=== PATIENT | female | born 1935 | race Caucasian/White ===

== ENCOUNTER 2018-06-05 10:32 | Outpatient (CLI) | payer MEDICARE, BC ==
--- NOTE | 2018-06-05 12:31 | MRI ---
MRI LUMBAR SPINE WITHOUT CONTRAST: HISTORY: Lumbar radiculopathy. Low back pain, radiating down her posterior right leg. Associated tingling in the 1st digit of the right foot, x 6 weeks. COMPARISON: 09/11/2016. TECHNIQUE: MRI lumbar spine is performed without intravenous Gadolinium administration. Multisequential, multip lanar imaging is performed. FINDINGS: There is a hypointensity of the visualized marrow signal of the distal thoracic vertebrae, lumbar reji tebrae, and S1 vertebral body. Heterogeneous areas of fatty marrow are noted. Findings may represen t senescent change. Anemia could not be completely excluded. There is no significant STIR hyperinte nsity to suggest ligamentous injury or an acute lumbar spine fracture. There is a severe compression fracture involving the L1 vertebral body, likely chronic given the lack of STIR hyperintensity. There are multiple T2 hyperintensities in the kidneys compatible with cysts. Symmetric signal intens ity of the psoas muscles. Conus medullaris terminates at the mid T12 level. T12-L1: Desiccation with moderate loss of disk space height. No high-grade central canal stenosis. Mild bilateral neural foraminal narrowing. L1-L2: No significant loss of disk space height. Generalized disk bulge results in minimal central c anal stenosis. Moderate to severe right and moderate left neural foraminal narrowing. There is 3.5 mm of retrolisthesis of L1 upon L2. L2-L3: Adequate disk hydration. Minimal central and left subarticular disk bulge. No significant c entral canal stenosis. Neural foramina are patent. L3-L4: Adequate disk hydration. No significant loss of disk space height. There is a small central and left subarticular disk bulge. Minimal narrowing of the left subarticular zone. There is no sig nificant central canal stenosis. There is metallic susceptibility artifact secondary to unilateral t ranspedicular screw on the right side at L4. L4-L5: Adequate disk hydration. There is a central/left subarticular disk bulge without significant central canal stenosis. Left hemilaminotomy defect. Mild central canal stenosis. Limited evaluati on of the right neural foramen due to metallic susceptibility artifact from a right-sided transpedicu lar screw at L4 and L5. Mild right foraminal narrowing. The left neural foramen is mildly narrowed. There is 5 mm anterolisthesis of L4 upon L5. Previously noted narrowing of the right subarticular zone is no longer evident. L5-S1: Left hemilaminectomy defect. There is a generalized disk bulge with disk material abutting b oth traversing S1 nerve roots. There is some mass effect without obscuration of the traversing right S1 nerve root. The left S1 nerve root is unremarkable. A left laminectomy defect is identified. T here is bilateral left side hypertrophy. Moderate bilateral foraminal narrowing. IMPRESSION: 1. Postsurgical changes of the lumbar spine as above. There are varying degrees of central canal st enosis and foraminal narrowing as detailed above. 2. Remote compression fracture at L1. 3. T1 marrow signal intensity hypointensity of the lumbar vertebrae, unchanged from the previous exa mination. Correlate for anemia. POS: [facility]
== END 2018-06-05 10:33 | disposition home or self-care (01) ==
LOC: BICMRI 10:32
PROVIDERS: ATTEND Specialist
DX: M54.16 Radiculopathy, lumbar region (principal); M48.061 Spinal stenosis, lumbar region without neurogenic claudication; Z98.890 Other specified postprocedural states
CPT/HCPCS: 72148

== ENCOUNTER 2018-07-05 13:33 | Outpatient (CLI) | payer MEDICARE, BC ==
[2018-07-05 15:36] LABS: Anion Gap 13 mmol/L (10-20); BUN (Urea Nitrogen) 23 mg/dL (9.8-20.1); Calc. Creatinine Clearance 0 mL/min (70-130); Calcium 9.6 mg/dL (7.8-10.44); Carbon Dioxide 29 mmol/L (23-31); Chloride 102 mmol/L (98-107); Estimated GFR-MDRD 73; Glucose 113 mg/dL (83-110); Potassium 3.4 mmol/L (3.5-5.1); Sodium 141 mmol/L (136-145)
== END 2018-07-05 13:34 | disposition home or self-care (01) ==
LOC: LABBT 13:33
PROVIDERS: ATTEND Neurological Surgery
DX: Z01.818 Encounter for other preprocedural examination (principal); M54.16 Radiculopathy, lumbar region
CPT/HCPCS: 80048; 93005; 93010

== ENCOUNTER 2018-07-08 08:23 | Day surgery (SDC) | payer MEDICARE, BC ==
[2018-07-05 13:40] VITALS: BMI 29.2
[2018-07-08] MEDS ORDERED: Bupivacaine HCl 0.5%/Epinephrine 1:200,000/PF 30 ml Vial ONE (10:42)
[2018-07-08] MEDS ORDERED: Fentanyl 100 MCG/2 ML VIAL ONE ×2 (11:14→12:39)
--- NOTE | 2018-07-08 12:35 | OP ---
DATE OF PROCEDURE: 07/08/2018 CONTAMINATED LAND CONSULTANT: Zac Solsi PA-C. INDICATION: Pain. DIAGNOSIS: Right S1 radiculopathy. PROCEDURES PERFORMED: Right L5-S1 decompression. ANESTHESIA: General. DESCRIPTION OF PROCEDURE: The patient was brought into the operating room and placed under general anesthesia. She was flipped from the supine to prone position on the operating room table. A linear incision was planned to the site of an old incision. This area was prepped and draped. After appropriate pause, the incision was created. The soft tissues were swept right of midline. A self-retaining retractor was placed in the wound for optimal exposure. After confirming appropriate level with C-arm fluoroscopy, high-speed cutting drill bit as well as 2 and 3 mm Kerrisons were used to perform a laminectomy, which extended along the inferior aspect of L5 and the superior aspect of S1. The S1 nerve root was identified and subsequently decompressed throughout its course in the lateral recess in the proximal aspect of the foramina. The wound was then irrigated. Hemostasis was maintained throughout. The wound was then closed in anatomic layers and a pressure dressing was applied. There were no known procedural complications. Job ID: [id number]
[2018-07-08] MEDS ORDERED: Lidocaine 1% PF 5 ML VIAL ONE (15:12)
[2018-07-08] MEDS ORDERED: Glycopyrrolate 0.2 MG/ML 5 ML SYRINGE ONE (15:12)
[2018-07-08] MEDS ORDERED: Rocuronium Bromide 10 MG/ML (10ML VIAL) ONE (15:12)
[2018-07-08] MEDS ORDERED: PROPOFOL 200 MG/20 ML VIAL ONE (15:12)
[2018-07-08] MEDS ORDERED: PHENYLEPHRINE-NS 100 MCG/ML 10 ML SYRINGE ONE (15:12)
[2018-07-08] MEDS ORDERED: Acetaminophen/Codeine 30-300mg Tablet ONE (15:28)
== END 2018-07-08 16:25 | disposition home or self-care (01) ==
LOC: SDC 08:23
PROVIDERS: ATTEND Neurological Surgery
PROC: 01NB0ZZ Release Lumbar Nerve, Open Approach (ICD-10-PCS; principal; 2018-07-08)
DX: M54.18 Radiculopathy, sacral and sacrococcygeal region (principal); M54.16 Radiculopathy, lumbar region; M81.0 Age-related osteoporosis without current pathological fracture; K58.9 Irritable bowel syndrome, unspecified; G20 Parkinson's disease; Z79.82 Long term (current) use of aspirin; Z79.899 Other long term (current) drug therapy; Z88.2 Allergy status to sulfonamides; Z88.5 Allergy status to narcotic agent; Z98.1 Arthrodesis status; Z98.890 Other specified postprocedural states
CPT/HCPCS: 76000; J0670; J2001; J2704; J3010

== ENCOUNTER 2018-09-02 19:01 | Inpatient (IN) | payer MEDICARE, BC ==
[2018-09-02] MEDS ORDERED: Fentanyl 100 MCG/2 ML VIAL ONE (19:23)
[2018-09-02] MEDS ORDERED: Ondansetron PF 4 MG/2 ML Vial ONE (19:23)
--- NOTE | 2018-09-02 19:50 | RAD ---
EXAM: Chest one view: HISTORY: Left-sided chest pain following injury from a fall COMPARISON: 01/22/2008 FINDINGS: Heart size: Within normal limits. The lungs: Clear of acute process. No evidence for pneumonia, pleural effusion, acute edema, or pneumothorax, or other significant acute process. IMPRESSION: No significant acute intrathoracic disease. Atherosclerosis of the aorta. Stable from prior study.
--- NOTE | 2018-09-02 19:51 | RAD ---
Exam: AP pelvis: HISTORY: Left sided pain following a fall and injury FINDINGS: Minimally displaced intertrochanteric fracture left femur. Postoperative fixation screw of the right hip. Postoperative changes at L4-L5 on the right side. Diffuse bony demineralization. No acute pelvic fracture proper. IMPRESSION: Displaced intertrochanteric fracture left femur
--- NOTE | 2018-09-02 19:52 | RAD ---
Exam: Left hip 2 views: HISTORY: Left hip pain following injury from a fall Minimally displaced intertrochanteric fracture left femur with some minimal angulation deformity. IMPRESSION: Minimally displaced and angulated intertrochanteric fracture left femur.
[2018-09-02 20:11] LABS: #Basophils 0.1 thou/uL (0.0-0.2); #Eosinphils 0.1 thou/uL (0.0-0.7); #Lymphocytes 2.1 thou/uL (1.20-3.40); #Monocytes 0.9 thou/uL (0.11-0.59); #Neutrophils 5.8 thou/uL (1.40-6.50); %Basophils 0.6 % (0.0-1.0); %Eosinophils 1.3 % (0.0-10.0); %Neutrophils 65.1 % (42.0-75.0); Hemoglobin 13.1 g/dL (12.0-16.0); Mean Corpuscular HGB CONC 32.4 g/dL (32.0-36.0); Mean Corpuscular Hemoglobin 30.3 pg (27.0-31.0); Mean Corpuscular Volume 93.5 fL (78.0-98.0); Mean Platelet Volume 6.8 fL (7.4-10.4); Platelet Count 245 thou/uL (130-400); RBC Distribution Width 12.6 % (11.5-14.5); Red Blood Cell (RBC) Count 4.33 mill/uL (4.20-5.40)
[2018-09-02 20:19] LABS: INR-International Normal Ratio 0.9; Prothrombin Time 12.6 SEC (12.0-14.7)
[2018-09-02 20:34] LABS: ALT (SGPT) Less than 7 U/L (8-55); AST (SGOT) 19 U/L (5-34); Alkaline Phosphatase 80 U/L (40-150); Anion Gap 14 mmol/L (10-20); BUN (Urea Nitrogen) 15 mg/dL (9.8-20.1); Bilirubin, Total 0.3 mg/dL (0.2-1.2); Calc. Creatinine Clearance 0 mL/min (70-130); Calcium 9.7 mg/dL (7.8-10.44); Carbon Dioxide 28 mmol/L (23-31); Chloride 102 mmol/L (98-107); Estimated GFR-MDRD 82; Globulin 2.7 g/dL (2.4-3.5); Glucose 99 mg/dL (83-110); Potassium 3.6 mmol/L (3.5-5.1); Protein, Total 6.7 g/dL (6.0-8.3); Sodium 140 mmol/L (136-145)
--- NOTE | 2018-09-02 21:44 | HP ---
REQUESTING PHYSICIAN: Dr. Urbina. CONSULTATIONS: Orthopedics, Dr. Siddiqui. HISTORY OF PRESENT ILLNESS: The patient is an 82-year-old woman, who was reportedly walking at home when she tripped possibly on a rug, but fell landing on her left hip. The patient denied any loss of consciousness. She denied any syncopal type symptoms before or after the fall. She had family called 911. The patient was brought to the emergency department by ground EMS, where she underwent evaluation and examination, and was noted to have a left hip fracture, at which time we were asked to evaluate the patient for admission and obtain Orthopedic consultation. ALLERGIES: TRAMADOL, FAMILY STATES THAT IT INTERFERES WITH HER PARKINSON'S. CURRENT MEDICATIONS: Aspirin, Crestor, Evista, sulfasalazine, Benicar HCT, Celebrex. PAST MEDICAL HISTORY: Parkinson's, irritable bowel, hypertension, hyperlipidemia, and osteoporosis. PAST SURGICAL HISTORY: ORIF of right hip fracture, hernia repair and back surgery for radiculopathy. SOCIAL HISTORY: The patient lives at home with family. She has no history of drug, tobacco, or alcohol use. A 10-point review of systems is negative as otherwise stated. PHYSICAL EXAMINATION: VITAL SIGNS: Heart rate 82, blood pressure 130/68, respirations 18, oxygen saturation is 98% on room air, temperature is 98.8. GENERAL: The patient is resting comfortably in bed. She is awake, alert, and oriented x3. Sathya Coma Scale is 15. HEENT: Head is normocephalic, atraumatic. Eyes, extraocular motion intact. PERRLA bilaterally. Ears are atraumatic without discharge. Nose, atraumatic without discharge. Oropharynx is clear. NECK: Nontender. Trachea is midline. There is no JVD. CHEST: Clear to auscultation with good inspiratory and expiratory effort. HEART: Regular rate and rhythm. ABDOMEN: Soft, flat and nontender with active bowel sounds. PELVIS: Stable with tenderness to the left hip consistent with her fracture. EXTREMITIES: Neurovascularly intact x4. BACK: By report is atraumatic and nontender. LABORATORY FINDINGS: White blood cell count 9.0, hemoglobin is 13.1, hematocrit 40.5, platelets 245. PT 13, INR 0.9, and PTT 29. Chemistries are pending. RADIOGRAPHIC FINDINGS: AP chest x-ray shows no significant acute intrathoracic disease. AP pelvis shows displaced intertrochanteric femur fracture on the left. Views of the left hip show a minimally displaced and angulated intertrochanteric fracture of the left femur. ASSESSMENT: 1. Status post ground level fall. 2. Left intertrochanteric femur fracture. 3. History of Parkinson disease. 4. History of hyperlipidemia. 5. History of hypertension. 6. History of osteoporosis. 7. History of irritable bowel disease. PLAN: Plan will be to admit the patient to the surgical floor. She will be made n.p.o. after midnight. The patient is requesting Dr. Neal who did her prior surgery to this surgery. Dr. Siddiqui will attempt to contact Dr. Neal and see if this can be arranged, otherwise it has been discussed with the patient and the family. Of note, Dr. Umanzore Lior is her son and they are aware that if Dr. Neal is not able to perform the surgery in a timely manner, it would be best to have Dr. Siddiqui do the surgery to alleviate her pain and get her mobile sooner. The patient will have pain control, pulmonary toilet, gastritis and mechanical VTE prophylaxis. She will work with Physical and Occupational Therapy and placement will be discussed at that time. Evaluation, examination, laboratory, and radiographic findings will be discussed with Dr. Mcclure after this dictation. Job ID: [id number]
[2018-09-02] MEDS ORDERED: Ondansetron PF 4 MG/2 ML Vial IVP PRN (22:43)
[2018-09-02] MEDS ORDERED: hydrALAZINE 20 MG/ML VIAL SLOW IVP PRN (22:43)
[2018-09-02] MEDS ORDERED: Dextrose 5% in Water 1,000 ML IV PRN (22:43)
[2018-09-02] MEDS ORDERED: Ondansetron ODT 4 MG TAB PO PRN (22:43)
[2018-09-02] MEDS ORDERED: Dextrose 50% Abboject 50 ML SYRINGE SLOW IVP PRN (22:43)
[2018-09-02] MEDS ORDERED: Ketorolac Tromethamine 30 MG/ML VIAL IVP SCH (22:43)
[2018-09-02] MEDS ORDERED: Morphine 4 MG/ML VIAL SLOW IVP PRN (23:00)
[2018-09-02 23:05] VITALS: BMI 29.2
[2018-09-02] MEDS: Sodium Chloride 0.9% 1,000 ML IV SCH (23:16)
[2018-09-02] MEDS: Acetaminophen 1,000 MG in Premix Bag 1 BAG IVPB SCH (23:17)
[2018-09-02] MEDS: Famotidine 20 MG TAB PO SCH (23:17)
[2018-09-02] MEDS ORDERED: CARBIDOPA PO SCH ×2 (23:30)
[2018-09-02] MEDS ORDERED: LEVODOPA PO SCH ×2 (23:30)
[2018-09-03 04:55] LABS: #Basophils 0.1 thou/uL (0.0-0.2); #Eosinphils 0.1 thou/uL (0.0-0.7); #Lymphocytes 2.4 thou/uL (1.20-3.40); #Monocytes 1.2 thou/uL (0.11-0.59); #Neutrophils 8.3 thou/uL (1.40-6.50); %Basophils 0.7 % (0.0-1.0); %Eosinophils 1.2 % (0.0-10.0); %Lymphocytes 19.5 % (21.0-51.0); %Monocytes 10.2 % (0.0-10.0); %Neutrophils 68.3 % (42.0-75.0); Mean Corpuscular HGB CONC 32.9 g/dL (32.0-36.0); Mean Platelet Volume 6.8 fL (7.4-10.4); Platelet Count 224 thou/uL (130-400); RBC Distribution Width 12.5 % (11.5-14.5); Red Blood Cell (RBC) Count 3.87 mill/uL (4.20-5.40); White Blood Cell (WBC) Count 12.2 thou/uL (4.8-10.8)
[2018-09-03 05:09] LABS: Anion Gap 11 mmol/L (10-20); BUN (Urea Nitrogen) 15 mg/dL (9.8-20.1); Calc. Creatinine Clearance 80 mL/min (70-130); Calcium 8.9 mg/dL (7.8-10.44); Carbon Dioxide 26 mmol/L (23-31); Chloride 105 mmol/L (98-107); Estimated GFR-MDRD 89; Glucose 86 mg/dL (83-110); Potassium 3.8 mmol/L (3.5-5.1); Sodium 138 mmol/L (136-145)
[2018-09-03] MEDS: Acetaminophen 1,000 MG in Premix Bag 1 BAG IVPB SCH ×3 (05:42→15:38)
[2018-09-03] MEDS ORDERED: CEFAZOLIN 2 GM in Premix Bag 1 BAG IVPB SCH (07:45)
[2018-09-03] MEDS ORDERED: Rosuvastatin 10 MG TAB PO SCH (09:00)
[2018-09-03] MEDS: Hydrochlorothiazide 25 MG TAB PO SCH (09:00)
[2018-09-03] MEDS: Famotidine 20 MG TAB PO SCH ×2 (09:08→20:21)
[2018-09-03] MEDS: CARBIDOPA PO SCH ×10 (09:09→22:15)
[2018-09-03] MEDS: LEVODOPA PO SCH ×10 (09:09→22:15)
[2018-09-03] MEDS: sulfaSALAzine 500 MG TAB PO SCH ×2 (09:09→20:22)
[2018-09-03] MEDS: RASAGILINE MESYLATE 1 MG PO SCH (09:09)
[2018-09-03] MEDS ORDERED: Fentanyl 100 MCG/2 ML VIAL ONE ×2 (11:22→13:12)
[2018-09-03] MEDS ORDERED: Dexamethasone 4 mg/ml Vial ONE (11:22)
[2018-09-03] MEDS ORDERED: Ondansetron PF 4 MG/2 ML Vial ONE (11:37)
[2018-09-03] MEDS ORDERED: Bupivacaine HCl 0.5%/Epinephrine 1:200,000/PF 30 ml Vial ONE (13:31)
[2018-09-03] MEDS ORDERED: PROPOFOL 200 MG/20 ML VIAL ONE (13:51)
[2018-09-03] MEDS ORDERED: Lidocaine 1% PF 5 ML VIAL ONE (13:51)
[2018-09-03] MEDS ORDERED: PHENYLEPHRINE-NS 100 MCG/ML 10 ML SYRINGE ONE (13:51)
--- NOTE | 2018-09-03 15:29 | PRG ---
DATE OF SERVICE: 09/03/2018 SUBJECTIVE: Ms. Tinajero was admitted last night for ground level fall, suffering a hip fracture. The patient is being seen by Orthopedics and ORIF is planned today. Hemoglobin is 12. Basic metabolic profile normal. OBJECTIVE: LUNGS: Clear to auscultation. CARDIAC: Regular rate and rhythm without murmur or gallop. ABDOMEN: Soft and nontender. ASSESSMENT AND PLAN: Status post ground level fall with hip fracture. Planned ORIF today. N.p.o. Awaiting an operation, left hip. Job ID: [id number]
[2018-09-03] MEDS ORDERED: Acetaminophen/Codeine 30-300mg Tablet PO PRN ×3 (15:33→16:07)
[2018-09-03] MEDS: Sodium Chloride 0.9% 1,000 ML IV SCH (15:43)
[2018-09-03] MEDS: Acetaminophen 500 MG TAB PO SCH ×2 (17:54→20:21)
--- NOTE | 2018-09-03 21:24 | CON ---
DATE OF CONSULTATION: 09/03/2018 BRIEF HISTORY OF PRESENT ILLNESS: The patient is an 82-year-old lady, who while walking at home, tripped and fell, landing on her left hip. She denies any loss of consciousness. Upon arrival at [facility], she had complaints of left groin pain and x-ray of the pelvis revealed a left intertrochanteric femur fracture. As such, the patient admitted to the Trauma Service with Orthopedic consultation requested. PAST MEDICAL HISTORY: Remarkable for Parkinson syndrome, hypertension, hyperlipidemia, osteoporosis, as well as irritable bowel syndrome. PAST SURGICAL HISTORY: Intramedullary hip screw of right hip in 2015, herniorrhaphy, and back surgery for radiculopathy. MEDICATIONS: Medications prior to admission include: 1. Aspirin. 2. Crestor. 3. Evista. 4. Sulfasalazine. 5. Benicar. 6. Celebrex. ALLERGIES: TRAMADOL. SOCIAL HISTORY: The patient lives at home with her family. There is no history of drug, tobacco, or alcohol use. FAMILY HISTORY: Noncontributory. REVIEW OF SYSTEMS: No recent fevers, chills, or sweats. Denies chest pain or shortness of breath. Denies numbness or tingling in the lower extremity. PHYSICAL EXAMINATION: VITAL SIGNS: Temperature 97.7, heart rate of 84, respiratory rate of 16, and blood pressure 121/81. HEENT: Atraumatic and normocephalic. HEART: Shows a regular rate and rhythm without murmur. LUNGS: Clear to auscultation bilaterally with good breath sounds. ABDOMEN: Soft, flat, and nontender. PELVIS: Stable to compression, although with manipulation of the pelvis, she does have some mild left groin pain. EXTREMITIES: Remarkable for bilateral upper extremities that are atraumatic with normal subjective sensation. Left lower extremity is remarkable for hip, this was held in slight flexion and external rotation. Any type of movement of the leg produces groin pain. The knee, ankle, and foot appear atraumatic. She is wiggling her toes, and denies numbness in the foot. DIAGNOSTIC DATA: X-rays: AP pelvis as well as 2-view of the left hip remarkable for intertrochanteric femur fracture with displacement. LABORATORY DATA: White count of 9, hematocrit of 40.5, and 245,000 platelets. ASSESSMENT: An 82-year-old lady, status post ground-level fall, now with left intertrochanteric femur fracture. PLAN: At this time, the patient is n.p.o. A request was made for Dr. Neal; however, I have spoken with Dr. Neal and he will not be available for this surgery. As such, we will plan on this afternoon pursuing an intramedullary hip screw very similar to what she had done on the contralateral side. This morning, I spoke with family regarding risks and benefits. Risks include, but are not limited to bleeding, infection, nerve injury, DVT, PE, malunion, nonunion, loss of limb or life. They appear to understand and do wish to proceed. Informed consent will be obtained prior to surgery. Job ID: [id number]
--- NOTE | 2018-09-03 21:30 | OP ---
DATE OF PROCEDURE: 09/03/2018 PREOPERATIVE DIAGNOSIS: Left intertrochanteric femur fracture. POSTOPERATIVE DIAGNOSIS: Left intertrochanteric femur fracture. PROCEDURE PERFORMED: Intramedullary hip screw, left femur. ANESTHESIA: General. ESTIMATED BLOOD LOSS: 50 mL. IMPLANT: Synthes system was used with an 11 x 170 mm TFNA nail at 130 degrees with a 95-mm hip screw and a 36-mm distal cross-lock screw. COMPLICATIONS: None. DRAINS: None. SPECIMEN: None. INDICATIONS: The patient is a pleasant 82-year-old lady status post ground level fall sustaining a left intertrochanteric femur fracture. The patient has a past history of a right intertrochanteric femur fracture treated with an intramedullary hip screw. The patient now to undergo a similar procedure for this left side. Informed consent has been obtained and all questions have been answered. DESCRIPTION OF PROCEDURE: The patient was brought to the operating room and a time-out performed followed by induction of general anesthesia. Next, the patient was positioned supine on the fracture table with the well leg held in extension and slightly hyperextended to allow for AP lateral imaging of the left hip. The left leg was held in longitudinal traction. Once reduction was achieved, a sterile prep and drape was performed in the left lateral thigh. Next, a small incision was made proximal to the greater trochanter. After the skin was sharply incised, dissection was carried down bluntly such that the tip of the greater trochanter could be palpated. A threaded guidewire was then inserted at the tip of the greater trochanter, delivering it down into the proximal intramedullary canal. The opening reamer was then passed over this guidewire. Next, an 11-mm diameter short nail was passed into the canal of the femur without difficulty. Once placed to an appropriate depth, a second incision was made distal to the first and the jig for the hip screw was inserted through the skin and up against the lateral cortex of the femur. A threaded guidewire was then passed through the lateral cortex of the femur up into the femoral head approaching a [id number] position. Measurement was taken off this guidewire and then reaming was performed. A hip screw was then inserted. Once fully seated, the locking mechanism was engaged and the nail then backed off a half turn to allow for sliding of the hip screw. Next, the distal jig was used to insert a single distal cross-lock screw. At the completion of this, the jig was removed and then AP, lateral, C-arm images obtained. The 2 incisions were then irrigated with bulb syringe and closed in layers with 2-0 Vicryl and leanna for the final skin closure. Xeroform gauze and tape dressing were applied to the thigh and then the patient was transferred to recovery room in stable condition. There were no complications. She tolerated the procedure well. Job ID: [id number]
--- NOTE | 2018-09-03 22:14 | RAD ---
LEFT HIP THREE VIEWS: 09/03/18 HISTORY: Internal fixation of left hip fracture. Compression screw has been placed stabilizing a comminuted intertrochanteric fracture without signifi cant malalignment. IMPRESSION: Internal fixation compression screw stabilizing an intertrochanteric fracture left hip without signif icant malalignment. POS: [facility]
[2018-09-03] MEDS: Ibuprofen 600 MG TAB PO SCH (22:15)
[2018-09-04] MEDS: Acetaminophen/Codeine 30-300mg Tablet PO PRN ×3 (01:19→12:44)
[2018-09-04] MEDS: Acetaminophen 500 MG TAB PO SCH ×6 (02:12→20:32)
[2018-09-04] MEDS ORDERED: Sodium Chloride 0.9% 500 ML IVPB SCH ×2 (05:30→12:40)
[2018-09-04 05:48] LABS: #Eosinphils 0.1 thou/uL (0.0-0.7); #Lymphocytes 1.3 thou/uL (1.20-3.40); #Monocytes 1.7 thou/uL (0.11-0.59); %Basophils 0.1 % (0.0-1.0); %Eosinophils 0.3 % (0.0-10.0); %Monocytes 10.4 % (0.0-10.0); %Neutrophils 81.2 % (42.0-75.0); Hemoglobin 10.6 g/dL (12.0-16.0); Mean Corpuscular HGB CONC 33.5 g/dL (32.0-36.0); Mean Corpuscular Volume 92.8 fL (78.0-98.0); Platelet Count 221 thou/uL (130-400); RBC Distribution Width 12.4 % (11.5-14.5)
[2018-09-04] MEDS: Ibuprofen 600 MG TAB PO SCH ×3 (06:39→22:44)
[2018-09-04 06:52] LABS: Anion Gap 11 mmol/L (10-20); BUN (Urea Nitrogen) 12 mg/dL (9.8-20.1); Calc. Creatinine Clearance 83 mL/min (70-130); Calcium 8.5 mg/dL (7.8-10.44); Carbon Dioxide 24 mmol/L (23-31); Chloride 108 mmol/L (98-107); Estimated GFR-MDRD Greater than 90; Glucose 111 mg/dL (83-110); Phosphorus 2.5 mg/dL (2.3-4.7); Potassium 3.7 mmol/L (3.5-5.1); Sodium 139 mmol/L (136-145)
[2018-09-04] MEDS: sulfaSALAzine 500 MG TAB PO SCH ×2 (09:20→20:35)
[2018-09-04] MEDS: CARBIDOPA PO SCH ×8 (09:21→20:37)
[2018-09-04] MEDS: LEVODOPA PO SCH ×8 (09:21→20:37)
[2018-09-04] MEDS: RASAGILINE MESYLATE 1 MG PO SCH (09:21)
[2018-09-04] MEDS: Hydrochlorothiazide 25 MG TAB PO SCH (09:24)
[2018-09-04] MEDS: Famotidine 20 MG TAB PO SCH ×2 (09:24→20:32)
--- NOTE | 2018-09-04 10:21 | PRG ---
DATE OF SERVICE: 09/04/2018 SUBJECTIVE: Ms. Tinajero is an 82-year-old female, postop day 1 for ORIF of her left hip. She is tolerating p.o. well. Pain is well controlled. Awake and alert in bed. OBJECTIVE: VITAL SIGNS: Low blood pressure this morning, it is 89/60 and repeat 104/67; afebrile; saturating well on room air. GENERAL: No acute distress. HEENT: Normocephalic and atraumatic. LUNGS: Even inspiratory and expiratory effort. No respiratory distress. CHEST/ABDOMEN: Nondistended. Nontender to palpation. EXTREMITIES: Operative dressing clean, dry, and intact. NEUROLOGIC: Neurovascularly intact x4. ASSESSMENT: 1. Left intertrochanteric femur fracture, status post open reduction and internal fixation. 2. History of Parkinson disease. 3. History of multiple comorbidities. PLAN: Continue postoperative pain control. Encourage therapy with PT and OT screen for inpatient rehabilitation. Hemoglobin dropped post surgery. The patient is asymptomatic at this time. Continue supportive care. This patient was seen and evaluated on rounds this morning with Dr. Silvestre Mcclure. Job ID: [id number]
[2018-09-04] MEDS ORDERED: Rosuvastatin 10 MG TAB PO SCH (21:00)
[2018-09-05] MEDS: Acetaminophen 500 MG TAB PO SCH ×3 (00:04→08:22)
[2018-09-05] MEDS: Ibuprofen 600 MG TAB PO SCH (05:06)
[2018-09-05] MEDS: LEVODOPA PO SCH ×2 (08:20)
[2018-09-05] MEDS: CARBIDOPA PO SCH ×2 (08:20)
[2018-09-05] MEDS: RASAGILINE MESYLATE 1 MG PO SCH (08:21)
[2018-09-05] MEDS: sulfaSALAzine 500 MG TAB PO SCH (08:21)
[2018-09-05] MEDS: Hydrochlorothiazide 25 MG TAB PO SCH (08:22)
[2018-09-05] MEDS: Famotidine 20 MG TAB PO SCH (08:23)
[2018-09-05] MEDS ORDERED: Aspirin 81 mg Enteric Coated Tablet PO SCH (09:00)
[2018-09-05] MEDS ORDERED: Polyethylene Glycol 3350 17 GM Packet PO SCH (09:00)
[2018-09-05] MEDS ORDERED: Senokot S 8.6-50 MG TAB PO SCH (09:00)
[2018-09-05] MEDS: Acetaminophen/Codeine 30-300mg Tablet PO PRN (10:42)
[2018-09-05 11:53] VITALS: BP 109/72; TEMP 98.2
--- NOTE | 2018-09-05 20:51 | DIS ---
DATE OF ADMISSION: 09/02/2018 DATE OF DISCHARGE: 09/05/2018 ADMISSION DIAGNOSES: 1. Status post ground level fall. 2. Left intertrochanteric femur fracture. 3. History of Parkinson disease. 4. History of hyperlipidemia. 5. History of hypertension. 6. History of osteoporosis. 7. History of irritable bowel disease. CONSULTATIONS: Orthopedics, Dr. Siddiqui. PROCEDURE: Intramedullary hip screw, left femur. SUMMARY: The patient is an 82-year-old woman, who was brought to the emergency department after having a ground level fall. She underwent evaluation and examination and was noted to have the above injury. She will be admitted to the hospital and undergo her above procedure which she tolerated well. She began working with Physical and Occupational Therapy and would be able to be transferred to inpatient rehab. At time of transfer, she was tolerating a diet. Her pain was controlled and again, she was working with Physical and Occupational Therapy. The patient will follow up with Dr. Siddiqui in 10 to 14 days or sooner as needed. The patient may follow up with Trauma Clinic as needed and she may follow up with her primary care provider as needed. Job ID: [id number]
== END 2018-09-05 13:27 | DRG 482 ==
LOC: ERS 19:01 → SURG A 20:10
PROVIDERS: ADMIT Specialist; ATTEND Specialist
PROC: 0QS736Z Reposition Left Upper Femur with Intramedullary Internal Fixation Device, Percutaneous Approach (ICD-10-PCS; principal; 2018-09-03)
DX: S72.142A Displaced intertrochanteric fracture of left femur, initial encounter for closed fracture (principal); G20 Parkinson's disease; I10 Essential (primary) hypertension; E78.5 Hyperlipidemia, unspecified; M81.0 Age-related osteoporosis without current pathological fracture; K58.9 Irritable bowel syndrome, unspecified; Z88.8 Allergy status to other drugs, medicaments and biological substances; Z79.82 Long term (current) use of aspirin; Z98.890 Other specified postprocedural states; W18.09XA Striking against other object with subsequent fall, initial encounter
CPT/HCPCS: 36415; 71045; 72170; 76000; 80048; 80053; 83735; 84100; 85025; 85610; 85730; 86850; 86900; 86901; 93005; 96374; 96375; C1713; G0390; J0131; J0670; J0690; J1100; J1885; J2001; J2270; J2405; J2704; J3010; J7050

== ENCOUNTER 2019-05-10 15:20 | Emergency (ER) | payer MEDICARE, BC ==
--- NOTE | 2019-05-10 16:20 | RAD ---
RIGHT CLAVICLE TWO VIEWS: 05/10/19 HISTORY: Fall. There is a distal clavicle fracture just proximal to the AC joint. There are arthritic changes of the AC joint. Minimal displacement of the fracture is noted. IMPRESSION: Distal clavicle fracture POS: [facility]
--- NOTE | 2019-05-10 16:21 | RAD ---
RIGHT SHOULDER THREE VIEWS: 05/10/19 HISTORY: Shoulder injury. A minimally displaced distal clavicular fracture is seen. There are arthritic changes of the AC and g lenohumeral joints. IMPRESSION: Acute distal clavicle fracture, minimally displaced. POS: [facility]
--- NOTE | 2019-05-10 16:22 | RAD ---
RIGHT ELBOW FOUR VIEWS: 05/10/19 HISTORY: Fall with elbow pain. There is no signs of fracture or joint effusion. There are mild arthritic changes of the elbow. IMPRESSION: No evidence of fracture. POS: [facility]
[2019-05-10] MEDS ORDERED: Acetaminophen 500 MG TAB ONE (16:37)
[2019-05-10] MEDS ORDERED: Bacitracin 1 PK ONE (16:55)
--- NOTE | 2019-05-10 17:37 | CT ---
CT OF BRAIN PERFORMED WITHOUT CONTRAST ENHANCEMENT: 05/10/19 HISTORY: Fall with head injury. COMPARISON: 12/09/16 exam. There is some mild ventricular and sulcal prominence. There is no signs of intracerebral hemorrhage o r extra-axial fluid collections. Mastoid air cells are clear. There is an air fluid level within the right maxillary sinus which could be related to sinus disease. I do not appreciate any definite fract ure. If there was facial trauma, then consideration for a CT of the facial bones. IMPRESSION: 1. No acute intracranial abnormalities. 2. Air fluid level within the right maxillary sinus as detailed above. POS: [facility]
== END 2019-05-10 18:16 | disposition home or self-care (01) ==
LOC: ERS 15:20
DX: S42.031A Displaced fracture of lateral end of right clavicle, initial encounter for closed fracture (principal); S51.011A Laceration without foreign body of right elbow, initial encounter; S51.811A Laceration without foreign body of right forearm, initial encounter; I10 Essential (primary) hypertension; Z79.899 Other long term (current) drug therapy; Z79.82 Long term (current) use of aspirin; W18.30XA Fall on same level, unspecified, initial encounter
CPT/HCPCS: 70450

== ENCOUNTER 2022-03-28 06:43 | Inpatient (IN) | payer MEDICARE, BC ==
[2022-03-28 08:13] LABS: #Basophils 0.1 thou/uL (0.0-0.2); #Eosinphils 0.1 thou/uL (0.0-0.7); #Lymphocytes 0.8 thou/uL (1.20-3.40); #Monocytes 0.8 thou/uL (0.11-0.59); #Neutrophils 11.6 thou/uL (1.40-6.50); %Basophils 0.5 % (0.0-1.0); %Eosinophils 0.6 % (0.0-10.0); %Lymphocytes 6.2 % (21.0-51.0); %Neutrophils 86.7 % (42.0-75.0); Hemoglobin 10.9 g/dL (12.0-16.0); Mean Corpuscular HGB CONC 32.5 g/dL (32.0-36.0); Mean Corpuscular Hemoglobin 30.3 pg (27.0-31.0); Mean Corpuscular Volume 93.3 fl (78.0-98.0); Mean Platelet Volume 7.1 fL (7.4-10.4); Platelet Count 195 thou/uL (130-400); RBC Distribution Width 12.8 % (11.5-14.5); Red Blood Cell (RBC) Count 3.61 mill/uL (4.20-5.40); White Blood Cell (WBC) Count 13.3 thou/uL (4.8-10.8)
[2022-03-28 08:22] LABS: Prothrombin Time 13.3 sec (12.0-14.7)
[2022-03-28 08:27] LABS: PTT 20.5 sec (22.9-36.1)
[2022-03-28 08:38] LABS: ALT (SGPT) Less than 7 U/L (8-55); AST (SGOT) 14 U/L (5-34); Albumin 3.5 g/dL (3.4-4.8); Alkaline Phosphatase 55 U/L (40-110); Anion Gap 8 mmol/L (10-20); BUN (Urea Nitrogen) 20 mg/dL (9.8-20.1); Bilirubin, Total 0.6 mg/dL (0.2-1.2); Calc. Creatinine Clearance 0 mL/min (70-130); Calcium 9.1 mg/dL (7.8-10.44); Carbon Dioxide 28 mmol/L (23-31); Chloride 107 mmol/L (98-107); Estimated GFR 86; Globulin 2.1 g/dL (2.4-3.5); Glucose 99 mg/dL (83-110); Potassium 4.4 mmol/L (3.5-5.1); Protein, Total 5.6 g/dL (5.8-8.1); Sodium 139 mmol/L (136-145)
[2022-03-28] MEDS ORDERED: Ondansetron ODT 4 MG TAB PO PRN (09:57)
[2022-03-28] MEDS ORDERED: Acetaminophen 325 MG TAB PO PRN (09:57)
[2022-03-28] MEDS ORDERED: Acetaminophen 650 MG Suppository PR PRN (09:57)
[2022-03-28] MEDS ORDERED: Ondansetron PF 4 MG/2 ML Vial IVP PRN (09:57)
[2022-03-28] MEDS: Sodium Chloride 0.9% 1,000 ML IV SCH ×2 (10:47→18:47)
[2022-03-28 10:53] LABS: Hemoglobin 9.6 g/dL (12.0-16.0)
[2022-03-28] MEDS ORDERED: RYTARY PO SCH (13:15)
[2022-03-28 16:51] LABS: Hemoglobin 10.7 g/dL (12.0-16.0)
[2022-03-28] MEDS ORDERED: GoLYTELY 4,000 ml Bottle PO SCH (18:00)
[2022-03-28] MEDS ORDERED: Denosumab 60 MG/ML Vial SC SCH (18:45)
[2022-03-28] MEDS: Pantoprazole 40 MG VIAL IVP SCH (20:27)
[2022-03-28 22:52] LABS: Hemoglobin 8.6 g/dL (12.0-16.0)
[2022-03-29 00:03] LABS: SARS-CoV-2 NAA Rapid Test Not Detected (NotDetected)
[2022-03-29 03:10] VITALS: BMI 24.3
[2022-03-29 06:28] LABS: Anion Gap 11 mmol/L (10-20); BUN (Urea Nitrogen) 13 mg/dL (9.8-20.1); Calc. Creatinine Clearance 73 mL/min (70-130); Calcium 8.4 mg/dL (7.8-10.44); Carbon Dioxide 22 mmol/L (23-31); Chloride 112 mmol/L (98-107); Estimated GFR 90; Glucose 87 mg/dL (83-110); Potassium 3.6 mmol/L (3.5-5.1)
[2022-03-29 06:34] LABS: Sodium 141 mmol/L (136-145)
[2022-03-29 07:00] LABS: #Basophils 0.1 thou/uL (0.0-0.2); #Eosinphils 0.1 thou/uL (0.0-0.7); #Lymphocytes 1.9 thou/uL (1.20-3.40); #Monocytes 0.7 thou/uL (0.11-0.59); #Neutrophils 7.3 thou/uL (1.40-6.50); %Basophils 0.7 % (0.0-1.0); %Eosinophils 0.8 % (0.0-10.0); %Lymphocytes 18.7 % (21.0-51.0); %Monocytes 6.8 % (0.0-10.0); Hemoglobin 9.1 g/dL (12.0-16.0); Mean Corpuscular HGB CONC 31.8 g/dL (32.0-36.0); Mean Corpuscular Hemoglobin 30.5 pg (27.0-31.0); Mean Corpuscular Volume 96.1 fl (78.0-98.0); Mean Platelet Volume 7.5 fL (7.4-10.4); Platelet Count 204 10x3/uL (130-400); RBC Distribution Width 12.7 % (11.5-14.5); Red Blood Cell (RBC) Count 2.97 mill/uL (4.20-5.40)
[2022-03-29] MEDS ORDERED: PROPOFOL 200 MG/20 ML VIAL ONE (10:26)
[2022-03-29] MEDS: Losartan 25 MG TAB PO SCH (11:57)
[2022-03-29] MEDS: Pantoprazole 40 MG VIAL IVP SCH ×2 (11:57→21:24)
[2022-03-29 14:23] LABS: Hemoglobin 9.2 g/dL (12.0-16.0)
[2022-03-29] MEDS ORDERED: GoLYTELY 4,000 ml Bottle PO SCH (17:00)
[2022-03-29] MEDS: Sodium Chloride 0.9% 1,000 ML IV SCH (17:42)
[2022-03-30] MEDS: Sodium Chloride 0.9% 1,000 ML IV SCH ×2 (04:35→18:26)
[2022-03-30 05:12] LABS: Band 18 % (5-11); Hemoglobin 8.2 g/dL (12.0-16.0); Lymphocytes 1 % (21-51); MDiff Complete? YES; Mean Corpuscular HGB CONC 33.1 g/dL (32.0-36.0); Mean Corpuscular Hemoglobin 30.9 pg (27.0-31.0); Mean Corpuscular Volume 93.5 fl (78.0-98.0); Mean Platelet Volume 7.6 fL (7.4-10.4); Monocytes 6 % (0-10); Neutrophil 75 % (42-75); Platelet Count 174 10x3/uL (130-400); RBC Distribution Width 12.9 % (11.5-14.5); Red Blood Cell (RBC) Count 2.65 mill/uL (4.20-5.40); White Blood Cell (WBC) Count 20.6 10x3/uL (4.8-10.8)
[2022-03-30 05:19] LABS: Anion Gap 11 mmol/L (10-20); BUN (Urea Nitrogen) 7 mg/dL (9.8-20.1); Calc. Creatinine Clearance 69 mL/min (70-130); Calcium 8.2 mg/dL (7.8-10.44); Carbon Dioxide 24 mmol/L (23-31); Chloride 113 mmol/L (98-107); Estimated GFR 89; Glucose 95 mg/dL (83-110); Potassium 2.9 mmol/L (3.5-5.1); Sodium 145 mmol/L (136-145)
[2022-03-30] MEDS: Carbidopa/Levodopa [Rytary Er] 48.75 MG/195 MG Capsule.Er PO SCH ×7 (09:12→20:08)
[2022-03-30] MEDS: Losartan 25 MG TAB PO SCH ×2 (09:13→09:14)
[2022-03-30] MEDS: Pantoprazole 40 MG VIAL IVP SCH ×2 (09:13→20:08)
[2022-03-30] MEDS: Carbidopa/Levodopa [Rytary Er] 36.25 MG/145 MG Capsule.Er PO SCH ×2 (11:46→16:14)
[2022-03-30] MEDS ORDERED: Ondansetron HCl/PF 4 MG/2 ML Vial IVP PRN (18:12)
[2022-03-30] MEDS ORDERED: Promethazine HCl 25 MG/ML VIAL IVPB PRN (18:12)
[2022-03-30] MEDS ORDERED: Promethazine HCl 25 MG/ML VIAL IM PRN (18:12)
[2022-03-30] MEDS ORDERED: PROPOFOL 200 MG/20 ML VIAL ONE (18:24)
[2022-03-30 21:44] LABS: Bacteria/HPF 4+ HPF (None Seen); Bilirubin Negative (Negative); Blood, Urine Trace (Negative); Clarity Turbid (Clear); Glucose, Urine (Dipstick) Normal (Negative); Ketone, Urine 10 mg/dL (Negative); Leukocyte 250 Leu/uL (Negative); Nitrite Negative (Negative); Protein, Urine (Dipstick) Negative (Neg-Trace); Renal Epithelial 0-3 HPF (None Seen); Specific Gravity, Urine 1.015 (1.002-1.036); Squamous Epithelial 0-3 HPF (0-3); Urobilinogen Normal mg/dL (Less than 2); WBC/HPF 21-50 HPF (0-3)
[2022-03-30 21:46] LABS: Urine Culture Reflex Yes Yes
[2022-03-31 04:27] LABS: #Eosinphils 0.3 thou/uL (0.0-0.7); #Lymphocytes 1.2 thou/uL (1.20-3.40); #Neutrophils 7.6 thou/uL (1.40-6.50); %Basophils 0.3 % (0.0-1.0); %Eosinophils 3.1 % (0.0-10.0); %Lymphocytes 12.2 % (21.0-51.0); %Monocytes 9.6 % (0.0-10.0); %Neutrophils 74.8 % (42.0-75.0); Hemoglobin 7.5 g/dL (12.0-16.0); Mean Corpuscular HGB CONC 33.1 g/dL (32.0-36.0); Mean Corpuscular Hemoglobin 30.8 pg (27.0-31.0); Mean Corpuscular Volume 93.1 fl (78.0-98.0); Mean Platelet Volume 8.8 fL (7.4-10.4); Platelet Count 135 10x3/uL (130-400); Red Blood Cell (RBC) Count 2.43 mill/uL (4.20-5.40); White Blood Cell (WBC) Count 10.2 10x3/uL (4.8-10.8)
[2022-03-31 05:13] LABS: Anion Gap 11 mmol/L (10-20); BUN (Urea Nitrogen) 7 mg/dL (9.8-20.1); Calc. Creatinine Clearance 63 mL/min (70-130); Calcium 8.1 mg/dL (7.8-10.44); Carbon Dioxide 23 mmol/L (23-31); Chloride 112 mmol/L (98-107); Estimated GFR 87; Glucose 102 mg/dL (83-110); Potassium 2.8 mmol/L (3.5-5.1); Sodium 143 mmol/L (136-145)
[2022-03-31] MEDS: Sodium Chloride 0.9% 1,000 ML IV SCH (05:46)
[2022-03-31] MEDS ORDERED: Potassium Chloride 40 MEQ in Sodium Chloride 0.9% 250 ML 250 ML IVPB SCH (08:30)
[2022-03-31] MEDS: Carbidopa/Levodopa [Rytary Er] 48.75 MG/195 MG Capsule.Er PO SCH ×4 (09:08→20:24)
[2022-03-31] MEDS: Potassium Chloride 40 MEQ in Sodium Chloride 0.9% 250 ML 250 ML IVPB SCH ×2 (09:09→11:10)
[2022-03-31] MEDS: Pantoprazole 40 MG VIAL IVP SCH ×2 (09:17→20:24)
[2022-03-31] MEDS: Carbidopa/Levodopa [Rytary Er] 36.25 MG/145 MG Capsule.Er PO SCH ×2 (11:09→15:41)
[2022-03-31] MEDS ORDERED: cefTRIAXone\\ROCEPHIN 2 GM in Sodium Chloride 0.9% 100 ML IVPB SCH (17:00)
[2022-03-31] MEDS ORDERED: Losartan 25 MG TAB PO SCH (17:00)
[2022-03-31 17:11] LABS: Hemoglobin 8.8 g/dL (12.0-16.0)
[2022-03-31 17:26] LABS: Anion Gap 12 mmol/L (10-20); BUN (Urea Nitrogen) 6 mg/dL (9.8-20.1); Calc. Creatinine Clearance 62 mL/min (70-130); Calcium 8.6 mg/dL (7.8-10.44); Carbon Dioxide 22 mmol/L (23-31); Chloride 111 mmol/L (98-107); Estimated GFR 87; Glucose 121 mg/dL (83-110); Magnesium 1.7 mg/dL (1.6-2.6); Potassium 3.6 mmol/L (3.5-5.1); Sodium 141 mmol/L (136-145)
[2022-04-01] MEDS ORDERED: cloNIDine 0.1 MG TAB PO SCH (04:00)
[2022-04-01] MEDS: Sodium Chloride 0.9% 1,000 ML IV SCH ×2 (04:07→09:39)
[2022-04-01 07:10] LABS: #Basophils 0.1 thou/uL (0.0-0.2); #Eosinphils 0.4 thou/uL (0.0-0.7); #Lymphocytes 1.4 thou/uL (1.20-3.40); #Monocytes 0.6 thou/uL (0.11-0.59); #Neutrophils 5.9 thou/uL (1.40-6.50); %Basophils 0.8 % (0.0-1.0); %Eosinophils 4.5 % (0.0-10.0); %Lymphocytes 16.9 % (21.0-51.0); %Neutrophils 70.8 % (42.0-75.0); Mean Corpuscular HGB CONC 34.9 g/dL (32.0-36.0); Mean Corpuscular Hemoglobin 33.4 pg (27.0-31.0); Mean Corpuscular Volume 95.5 fl (78.0-98.0); Mean Platelet Volume 7.2 fL (7.4-10.4); Platelet Count 199 10x3/uL (130-400); RBC Distribution Width 13.1 % (11.5-14.5); Red Blood Cell (RBC) Count 2.39 mill/uL (4.20-5.40); White Blood Cell (WBC) Count 8.4 10x3/uL (4.8-10.8)
[2022-04-01 07:28] LABS: Anion Gap 8 mmol/L (10-20); BUN (Urea Nitrogen) 5 mg/dL (9.8-20.1); Calc. Creatinine Clearance 75 mL/min (70-130); Calcium 8.3 mg/dL (7.8-10.44); Carbon Dioxide 26 mmol/L (23-31); Chloride 111 mmol/L (98-107); Estimated GFR 91; Glucose 103 mg/dL (83-110); Potassium 3.2 mmol/L (3.5-5.1); Sodium 142 mmol/L (136-145)
[2022-04-01] MEDS ORDERED: Potassium Chloride 40 MEQ in Premix Bag 1 BAG IVPB SCH (08:45)
[2022-04-01] MEDS: Potassium Chloride 20 MEQ in Premix Bag 1 BAG IVPB SCH ×2 (09:38→13:00)
[2022-04-01] MEDS: Pantoprazole 40 MG VIAL IVP SCH ×2 (09:40→20:08)
[2022-04-01] MEDS: Losartan 25 MG TAB PO SCH (09:40)
[2022-04-01] MEDS: Carbidopa/Levodopa [Rytary Er] 48.75 MG/195 MG Capsule.Er PO SCH ×4 (09:41→20:08)
[2022-04-01] MEDS ORDERED: Iopamidol-370 76% 500 ML 1 ML ONE (10:55)
[2022-04-01] MEDS: Carbidopa/Levodopa [Rytary Er] 36.25 MG/145 MG Capsule.Er PO SCH ×2 (11:48→17:02)
[2022-04-01] MEDS: Cephalexin 250 MG CAP PO SCH (16:56)
[2022-04-02] MEDS: Sodium Chloride 0.9% 1,000 ML IV SCH (00:37)
[2022-04-02] MEDS: Cephalexin 250 MG CAP PO SCH ×2 (00:37→06:26)
[2022-04-02 04:59] LABS: #Eosinphils 0.4 thou/uL (0.0-0.7); #Lymphocytes 1.2 thou/uL (1.20-3.40); #Monocytes 0.8 thou/uL (0.11-0.59); #Neutrophils 9.4 thou/uL (1.40-6.50); %Basophils 0.2 % (0.0-1.0); %Eosinophils 3.3 % (0.0-10.0); %Lymphocytes 10.2 % (21.0-51.0); %Monocytes 6.4 % (0.0-10.0); %Neutrophils 79.9 % (42.0-75.0); Hemoglobin 8.9 g/dL (12.0-16.0); Mean Corpuscular HGB CONC 33.1 g/dL (32.0-36.0); Mean Corpuscular Hemoglobin 31.1 pg (27.0-31.0); Mean Corpuscular Volume 93.7 fl (78.0-98.0); Mean Platelet Volume 7.2 fL (7.4-10.4); Platelet Count 242 10x3/uL (130-400); RBC Distribution Width 12.8 % (11.5-14.5); Red Blood Cell (RBC) Count 2.87 mill/uL (4.20-5.40); White Blood Cell (WBC) Count 11.8 10x3/uL (4.8-10.8)
[2022-04-02 05:33] LABS: Anion Gap 9 mmol/L (10-20); BUN (Urea Nitrogen) 7 mg/dL (9.8-20.1); Calc. Creatinine Clearance 73 mL/min (70-130); Calcium 8.9 mg/dL (7.8-10.44); Carbon Dioxide 27 mmol/L (23-31); Chloride 110 mmol/L (98-107); Estimated GFR 90; Glucose 96 mg/dL (83-110); Potassium 3.5 mmol/L (3.5-5.1); Sodium 142 mmol/L (136-145)
[2022-04-02] MEDS: Pantoprazole 40 MG VIAL IVP SCH (09:11)
[2022-04-02] MEDS: Carbidopa/Levodopa [Rytary Er] 48.75 MG/195 MG Capsule.Er PO SCH (09:11)
[2022-04-02] MEDS: Losartan 25 MG TAB PO SCH (09:11)
[2022-04-02 09:13] VITALS: BP 133/67; TEMP 97.8
[2022-04-02] MEDS: Carbidopa/Levodopa [Rytary Er] 36.25 MG/145 MG Capsule.Er PO SCH (11:36)
== END 2022-04-02 11:35 | disposition home or self-care (01) | DRG 378 ==
LOC: ERS 06:43 → ERHOLD 10:05 → 2NO 14:35
PROVIDERS: ADMIT Internal Medicine; ATTEND Family Medicine
PROC: 0DJ08ZZ Inspection of Upper Intestinal Tract, Via Natural or Artificial Opening Endoscopic (ICD-10-PCS; principal; 2022-03-29)
PROC: 0DJD8ZZ Inspection of Lower Intestinal Tract, Via Natural or Artificial Opening Endoscopic (ICD-10-PCS; 2022-03-29)
PROC: 0DBK8ZX Excision of Ascending Colon, Via Natural or Artificial Opening Endoscopic, Diagnostic (ICD-10-PCS; 2022-03-30)
PROC: 0DBL8ZX Excision of Transverse Colon, Via Natural or Artificial Opening Endoscopic, Diagnostic (ICD-10-PCS; 2022-03-30)
PROC: 0DBN8ZX Excision of Sigmoid Colon, Via Natural or Artificial Opening Endoscopic, Diagnostic (ICD-10-PCS; 2022-03-30)
PROC: 0DBP8ZX Excision of Rectum, Via Natural or Artificial Opening Endoscopic, Diagnostic (ICD-10-PCS; 2022-03-30)
PROC: 0DBM8ZX Excision of Descending Colon, Via Natural or Artificial Opening Endoscopic, Diagnostic (ICD-10-PCS; 2022-03-30)
PROC: 0DBH8ZX Excision of Cecum, Via Natural or Artificial Opening Endoscopic, Diagnostic (ICD-10-PCS; 2022-03-30)
DX: K92.2 Gastrointestinal hemorrhage, unspecified (principal); D62 Acute posthemorrhagic anemia; N39.0 Urinary tract infection, site not specified; Z20.822 Contact with and (suspected) exposure to COVID-19; I10 Essential (primary) hypertension; E78.5 Hyperlipidemia, unspecified; M81.0 Age-related osteoporosis without current pathological fracture; Z96.653 Presence of artificial knee joint, bilateral; D72.829 Elevated white blood cell count, unspecified; E87.6 Hypokalemia; B96.20 Unspecified Escherichia coli [E. coli] as the cause of diseases classified elsewhere; K57.30 Diverticulosis of large intestine without perforation or abscess without bleeding; K64.8 Other hemorrhoids; K58.9 Irritable bowel syndrome, unspecified; K64.4 Residual hemorrhoidal skin tags; K44.9 Diaphragmatic hernia without obstruction or gangrene; G20 Parkinson's disease; Z79.82 Long term (current) use of aspirin; Z88.8 Allergy status to other drugs, medicaments and biological substances; Z79.899 Other long term (current) drug therapy; Z88.2 Allergy status to sulfonamides
CPT/HCPCS: 36415; 71046; 74177; 80048; 80053; 81001; 83605; 83735; 84484; 85025; 85610; 85730; 86850; 86900; 86901; 87040; 87077; 87086; 87186; 88305; 93005; C9113; J0696; J2704; J3480; J3490; J7050; J8499; Q9967; U0002